=== PATIENT | male | born 1970 | race Caucasian/White ===

== ENCOUNTER 2022-03-02 15:15 | Outpatient (RCR) | payer OTHER, SELFPAY | END 2022-06-02 08:35 | disposition home or self-care (01) | PROVIDERS: PCP Family Medicine; Visit Provider Physician Assistant | DX: M54.2 Cervicalgia (principal); Z51.89 Encounter for other specified aftercare | CPT/HCPCS: 97012; 97110; 97140; 97161; 97162 ==

== ENCOUNTER 2022-05-30 08:19 | Emergency (ER) | payer OTHER, SELFPAY ==
[2022-05-30] VITALS (22 sets, daily range): BP systolic 151–173; BP diastolic 83–96; PULSE 49–65; TEMP 35.8; O2SAT 96–100; BMI 36.5
[2022-05-30 09:22] LABS: Basophils Absolute Auto 0.03 K/uL (0.00-0.30); Basophils Percent Auto 0.4 % (0.0-3.0); Eosinophils Absolute Auto 0.28 K/uL (0.00-0.50); Eosinophils Percent Auto 3.6 % (0.0-7.0); Hemoglobin* 14.3 gm/dL (13.5-17.5); Lymphocytes Absolute Auto 2.28 K/uL (0.90-2.90); Lymphocytes Percent Auto 28.9 % (20-44); Mean Corpuscular HGB Conc 35 gm/dL (32-36); Mean Corpuscular Hemoglobin 30 pg (26-34); Mean Corpuscular Volume 85 fL (80-100); Monocytes Percent Auto 6.7 % (0.0-11.0); Neutrophils Absolute Auto 4.76 K/uL (1.7-7.0); Neutrophils Percent Auto 60.4 % (42.0-72.0); Platelet Count* 279 K/uL (140-440); RDW Coefficient of Variation % 12.9 % (11.5-15.5); Red Blood Count 4.85 m/uL (4.30-5.90); White Blood Count* 7.88 K/uL (4.50-11.00)
[2022-05-30 09:25] LABS: Slide Review Reflex No
[2022-05-30 09:29] LABS: Lactate* 0.9 mmol/L (0.5-1.9)
[2022-05-30 09:37] LABS: Appearance Urine Clear (Clear); Bilirubin Urine 1+ (Negative); Blood Urine Negative (Negative); Color Urine Yellow (Yellow); Glucose Urine Negative (Negative); Ketones Urine Trace (Negative); Leukocyte Esterase Urine Negative (Negative); Nitrite Urine Negative (Negative); Protein Urine 2+ (Negative); Specific Gravity Urine 1.025 (1.000-1.030); Urobilinogen Urine 0.2 (0.2-1.0); pH Urine 6.5 (5.0-8.5)
[2022-05-30 09:39] LABS: Chloride* 105 mmol/L (96-114); Potassium* 3.2 mmol/L (3.6-5.1); Sodium* 140 mmol/L (135-149)
[2022-05-30 09:41] LABS: Lipase* 60 U/L (23-300)
[2022-05-30 09:42] LABS: Blood Urea Nitrogen* 9 mg/dL (7-30); Carbon Dioxide* 26 mmol/L (20-32); Creatinine* 0.6 mg/dL (0.5-1.5); Est. Creatinine Clearance* 139.33; Estimated Glomerular Filt Rate 116 ml/min; Glucose* 104 mg/dL (60-115)
[2022-05-30 09:43] LABS: Alanine Aminotransferase* 29 U/L (4-50); Alkaline Phosphatase* 109 U/L (40-150); Aspartate Amino Transferase* 30 U/L (12-35); Bilirubin Direct* 0.3 mg/dL (0.0-0.5); Bilirubin Total* 0.6 mg/dL (0.1-1.5); Calcium* 9.4 mg/dL (8.4-10.6); Total Protein* 7.1 g/dL (6.0-8.3)
[2022-05-30 09:46] LABS: C Reactive Protein* 0.7 mg/dL (0.5-1.0)
[2022-05-30 09:53] LABS: RBC Urine 0-2 (0-2)
[2022-05-30 09:55] LABS: Mucus Urine Moderate
--- NOTE | 2022-05-30 10:04 | CRLHL7_ITS ---
For Patients: As a result of the Century Cures Act, medical imaging exams and procedure reports are released immediately into your electronic medical record. You may view this report before your referring provider. If you have questions, please contact your health care provider. indication: Right abdominal pain and flank pain Technique: Volumetric multidetector CT images of the abdomen and pelvis were obtained after the administration of intravenous contrast. 118 cc Isovue 370 low osmolar intravenous contrast Comparison: None available. Findings: The lung bases are clear. The liver is enlarged with moderate hepatic steatosis and hepatomegaly. The portal vein is patent. The gallbladder is unremarkable without evidence of radiopaque calculus. There is no significant common biliary ductal dilatation or abrupt cut off. The spleen is normal in enhancement and size. There is mild thickening of the gastric antrum with minimal gastric mucosal hyperemia. The pancreas is normal in enhancement without significant atrophy. The adrenal glands are unremarkable. The kidneys demonstrate cystic change of the left kidney with otherwise preserved corticomedullary differentiation. There is no evidence of distal obstructive calculus. There is a [id number] amount of stool seen throughout the colon with minimal distal colonic diverticulosis without evidence of diverticulitis. The appendix is unremarkable. There is no significant mesenteric, retroperitoneal, or pelvic sidewall lymph nodes. The aorta is nonaneurysmal. There is no significant atherosclerotic disease appreciated. The solid pelvic viscera are grossly unremarkable. There is no free fluid or free air. The anterior abdominal wall is intact without significant hernias. The lumbar vertebral body heights are grossly maintained with mild straightening of the normal lumbar lordosis. There is no significant spondylolisthesis or displaced fracture. There is mild to moderate degenerative disc disease with calcified disc osteophyte complexes at the L3-L4 through L5-S1 levels. Impression: Mild to moderate stool seen throughout the colon with minimal distal colonic diverticulosis without evidence of diverticulitis. Normal appendix. No evidence of right-sided hydronephrosis or hydroureter. Hepatomegaly and hepatic steatosis. [id number] chronic gastritis changes. Please note that all CT scans at this facility use dose modulation, iterative reconstruction, and/or weight-based dosing when appropriate to reduce radiation dose to as low as reasonably achievable. Dictated by Remigio Escalona MD @ 05/30/2022 10:57:09 AM (Electronically Signed)
--- NOTE | 2022-05-30 12:36 | ED_ITS ---
HPI - General Adult General Date Seen: 05/30/22 Chief complaint: Abdominal Pain Stated complaint: Abdominal pain/diarrhea Time Seen by Provider: 05/30/22 08:21 Source: patient Mode of arrival: ambulatory Limitations: no limitations History of Present Illness HPI narrative: Patient is a 51-year-old male who presents for evaluation of some right-sided back pain which has been present for about 3 weeks. He says he saw his primary clinic about a week ago for evaluation, and had an ultrasound at that time, he says he was told that symptoms may be related to his gallbladder any has an appointment set up with General surgery on the . He was told to come to the emergency department if he got any worse. He says that he continues to have pain in the right back, it radiates across to the left back. He has a little bit of mild epigastric discomfort at times, and has been having some nausea after he eats, no vomiting. The back pain does not get any worse with eating, it does get worse with movement any occasionally gets a sharp pain that lasts a couple of seconds. The back pain is otherwise been constant, does wax and wane with intensity. Never gone away however. He has not had any fevers. He has not had any vomiting. Has had some nonbloody diarrhea over the past few days. He has not had any other abdominal pain, specifically has not had any right upper quadrant pain. He has not had any breathing difficulties or chest pain. No urinary symptoms. He said he was told there was some inflammation on the gallbladder ultrasound as well as polyps. He was told to follow-up with surgery. Related Data Home Medications Medication Instructions Recorded Confirmed carvedilol 25 mg tablet mg 05/30/22 ezetimibe 10 mg-simvastatin 10 mg tab 05/30/22 tablet gabapentin 300 mg capsule mg 05/30/22 omeprazole 20 mg capsule,delayed mg 05/30/22 release rizatriptan 10 mg tablet mg 05/30/22 sacubitril 97 mg-valsartan 103 mg tab 05/30/22 tablet (Entresto) sertraline 100 mg tablet mg 05/30/22 spironolactone 25 mg tablet mg 05/30/22 tizanidine 2 mg tablet mg 05/30/22 tizanidine 4 mg tablet mg 05/30/22 zolpidem 10 mg tablet mg 05/30/22 Allergies Allergy/AdvReac Type Severity Reaction Status Date / Time Penicillins Allergy Unknown Verified 05/30/22 10:29 Review of Systems Status of ROS: Reports: 10 or more systems reviewed and unremarkable except as noted in History and below [facility] Social History Smoking Status: Never smoker How often do you have a drink containing alcohol: monthly or less How often do you have six or more drinks on one occasion: Never AUDIT-C Alcohol total score: 1 Non-prescribed substance use: denies use Exam Narrative: Exam Narrative: Vital signs as noted above. In general, an alert, well-appearing patient. He looks comfortable. Head: Normocephalic, atraumatic. Eyes: Pupils are equal reactive. Extraocular movements are full. Conjunctivae are normal. No scleral icterus. ENT: Mucous membranes are moist. Throat is normal. Neck: Supple without lymphadenopathy. Heart: Regular rate and rhythm. No murmur or rub. Lungs: Clear bilaterally. No increased work of breathing, crackles or wheezes. He does have tenderness to palpation in the right back, including some CVA tenderness. Abdomen: Protuberant and soft, notably absent right upper quadrant tenderness. Really does not seem to have any significant abdominal tenderness at all. Extremities: Well perfused. No edema. No calf tenderness. Pulses intact. Neurologic: Patient is alert and oriented to person and place. Speech is fluent. Face is symmetric. Moves all extremities equally. Affect: Normal. Skin: Warm and dry. Well perfused. Const: Vital Signs, click to edit/add: Vital Signs - 24 hr 05/30/22 08:28 05/30/22 08:29 05/30/22 08:30 Temperature 96.5 F L Pulse Rate 58 L 54 L Pulse Rate [Right Pulse Oximeter] 53 L Blood Pressure Blood Pressure [Ri ght Upper Arm] 165/95 H Pulse Oximetry 99 98 100 Oxygen Delivery Me thod Room Air 05/30/22 08:32 05/30/22 08:33 05/30/22 08:45 Temperature Pulse Rate 54 L 53 L 53 L Pulse Rate [Right Pulse Oximeter] Blood Pressure 164/87 H Blood Pressure [Ri ght Upper Arm] Pulse Oximetry 98 98 99 Oxygen Delivery Me thod 05/30/22 09:00 01/16/23 09:02 05/30/22 09:03 Temperature Pulse Rate 52 L 55 L 52 L Pulse Rate [Right Pulse Oximeter] Blood Pressure 155/83 H Blood Pressure [Ri ght Upper Arm] Pulse Oximetry 98 96 98 Oxygen Delivery Ca thod 05/30/22 09:19 05/30/22 09:30 05/30/22 09:32 Temperature Pulse Rate 53 L 49 L 51 L Pulse Rate [Right Pulse Oximeter] Blood Pressure 167/96 H Blood Pressure [Ri ght Upper Arm] Pulse Oximetry 97 98 98 Oxygen Delivery Ca thod 05/30/22 09:45 05/30/22 10:00 05/30/22 10:02 Temperature Pulse Rate 49 L 52 L 53 L Pulse Rate [Right Pulse Oximeter] Blood Pressure 173/92 H Blood Pressure [Ri ght Upper Arm] Pulse Oximetry 98 99 99 Oxygen Delivery Ca thod 05/30/22 10:03 05/30/22 10:15 05/30/22 10:32 Temperature Pulse Rate 53 L 51 L 65 Pulse Rate [Right Pulse Oximeter] Blood Pressure Blood Pressure [Ri ght Upper Arm] Pulse Oximetry 99 99 [facility] 10:41 05/30/22 10:45 05/30/22 11:02 Temperature Pulse Rate 51 L 51 L 53 L Pulse Rate [Right Pulse Oximeter] Blood Pressure 156/84 H 151/85 H Blood Pressure [Ri ght Upper Arm] Pulse Oximetry 99 99 99 [facility] 05/30/22 11:32 Temperature Pulse Rate 54 L Pulse Rate [Right Pulse Oximeter] Blood Pressure 153/88 H Blood Pressure [Ri ght Upper Arm] Pulse Oximetry 98 Oxygen Delivery Me thod Documenting provider has reviewed patient's vital signs: yes Course Course Hospital Course: Patient declined the need for anything for pain here. At home, he says he has taken ibuprofen a couple of times in Tylenol couple of times but really has not taken much since nothing seem to make much difference. He does have a history of gastroesophageal reflux and takes omeprazole 20 mg daily, he has taken that for quite some time. I had a fairly lengthy conversation with the patient and his both at the beginning and the end of his evaluation, discussing that his presentation is little unusual for gallbladder disease. I was able to obtai n the ultrasound report, which noted gallbladder polyps, but normal wall thickness, normal common bile duct. He does not have any right upper quadrant pain, does not have any abdominal tenderness, and with constant pain for 3 weeks, I told him I think it is relatively unlikely that his symptoms are related to the gallbladder polyps. Nonetheless, we did repeat some labs, his CBC shows a normal white blood cell count of 7.88 with a normal diff. His metabolic panel shows a mildly low potassium of 3.2 but otherwise electrolytes are normal, BUN and creatinine are normal, LFTs are entirely within normal limits and lipase is 60. A urinalysis showed 2+ protein bilirubin was 1+ but his serum bilirubin is normal. He had 0-2 red cells, 2-5 white cells. No bacteria. I went on to do a CT scan of the abdomen both to re-evaluate the gallbladder and to evaluate whether there might be some other reason for him to be having right flank pain for the past several weeks. Radiology reads this as essentially negative. He has a patent steatosis, and does have evidence of mild to moderate gastritis. I have discussed with him at this time I remain skeptical that symptoms are due to his gallbladder. I would recommend that he follow-up with Dr. Liu as planned to discuss his polyps, in the event that she feels that he is simply presenting in a typical manner. For today, I do not find any evidence of cholecystitis or need for more emergent management. He does have evidence of gastritis, I think it is certainly possible that his nausea and epigastric pain could represent worsening gastritis or peptic ulcer disease. I recommended that we increase his omeprazole. If Dr. Gaines does not feel that his gallbladder is the culprit here, I think follow-up with Gastroenterology might be reasonable to see if endoscopy could be helpful. With regard to his back pain, I suspect this is likely musculoskeletal, and I a suggested that a few days of targeted NSAID plus Tylenol 3 times daily might be beneficial for him. 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 For the time being, I think it is reasonable to let him go home. Certainly if he has worsening or severe pain, develops severe abdominal pain, vomiting, fevers or other new symptoms, he should return for re-evaluation. He is comfortable with that plan. Vital Signs Vital signs: Initial Vital Signs Temperature 96.5 F L 05/30/22 08:28 Temperature Source Temporal Artery Scan 05/30/22 08:28 Pulse Rate 53 L 05/30/22 08:28 Blood Pressure 165/95 H 05/30/22 08:28 Blood Pressure Mean 118 05/30/22 08:28 Blood Pressure Position Sitting 05/30/22 08:28 Pulse Oximetry 99 05/30/22 08:28 Oxygen Delivery Method 05/30/22 08:28 Vital Signs Temperature 96.5 F L 05/30/22 08:28 Pulse Rate 53 L 05/30/22 08:28 Blood Pressure 165/95 H 05/30/22 08:28 Pulse Oximetry 99 05/30/22 08:28 Oxygen Delivery Method 05/30/22 08:28 Temperature 96.5 F L 05/30/22 08:28 Pulse Rate 54 L 05/30/22 11:32 Blood Pressure 153/88 H 05/30/22 11:32 Pulse Oximetry 98 05/30/22 11:32 Oxygen Delivery Method 05/30/22 08:28 Medical Decision Making Lab Data Labs: Lab Results 05/30/22 05/30/22 05/30/22 Range/Units 09:16 09:16 09:16 WBC 7.88 (4.50-11.00) K/uL RBC 4.85 (4.30-5.90) m/uL Hgb 14.3 (13.5-17.5) gm/dL Hct 41.0 (37.0-53.0) % MCV 85 (80-100) fL MCH 30 (26-34) pg MCHC 35 (32-36) gm/dL RDW Coeff of Teddy 12.9 (11.5-15.5) % Plt Count 279 (140-440) K/uL Neut % (Auto) 60.4 (42.0-72.0) % Lymph % (Auto) 28.9 (20-44) % [place] % (Auto) 6.7 (0.0-11.0) % Eos % (Auto) 3.6 (0.0-7.0) % Baso % (Auto) 0.4 (0.0-3.0) % Neut # (Auto) 4.76 (1.7-7.0) K/uL Lymph # (Auto) 2.28 (0.90-2.90) K/uL [place] # (Auto) 0.50 (0.00-0.90) K/UL Eos # (Auto) 0.28 (0.00-0.50) K/uL Baso # (Auto) 0.03 (0.00-0.30) K/uL Sodium 140 (135-149) mmol/L Potassium 3.2 L (3.6-5.1) mmol/L Chloride 105 (96-114) mmol/L Carbon Dioxide 26 (20-32) mmol/L BUN 9 (7-30) mg/dL Creatinine 0.6 (0.5-1.5) mg/dL Estimated Creat Clear 139.33 Estimated GFR 116 ml/min Glucose 104 (60-115) mg/dL Lactate (0.5-1.9) mmol/L Calcium 9.4 (8.4-10.6) mg/dL Total Bilirubin 0.6 (0.1-1.5) mg/dL Direct Bilirubin 0.3 (0.0-0.5) mg/dL AST 30 (12-35) U/L ALT 29 (4-50) U/L Alkaline Phosphatase 109 (40-150) U/L C-Reactive Protein 0.7 (0.5-1.0) mg/dL Total Protein 7.1 (6.0-8.3) g/dL Albumin 4.0 (3.3-5.0) g/dL Lipase (23-300) U/L Urine Color (Yellow) Urine Appearance (Clear) Urine pH (5.0-8.5) Ur Specific [place] (1.000-1.030) Urine Protein (Negative) Urine Glucose (UA) (Negative) Urine Ketones (Negative) Urine Blood (Negative) Urine Nitrite (Negative) Urine Bilirubin (Negative) Urine Urobilinogen (0.2-1.0) Ur Leukocyte Esterase (Negative) Urine RBC (0-2) Urine WBC (0-5) Ur Squamous Epith Cells (None-Few) Urine Bacteria (None) Urine Mucus (None) 05/30/22 05/30/22 05/30/22 Range/Units 09:16 09:16 09:17 WBC (4.50-11.00) K/uL RBC (4.30-5.90) m/uL Hgb (13.5-17.5) gm/dL Hct (37.0-53.0) % MCV (80-100) fL MCH (26-34) pg MCHC (32-36) gm/dL RDW Coeff of Teddy (11.5-15.5) % Plt Count (140-440) K/uL Neut % (Auto) (42.0-72.0) % Lymph % (Auto) (20-44) % [place] % (Auto) (0.0-11.0) % Eos % (Auto) (0.0-7.0) % Baso % (Auto) (0.0-3.0) % Neut # (Auto) (1.7-7.0) K/uL Lymph # (Auto) (0.90-2.90) K/uL [place] # (Auto) (0.00-0.90) K/UL Eos # (Auto) (0.00-0.50) K/uL Baso # (Auto) (0.00-0.30) K/uL Sodium (135-149) mmol/L Potassium (3.6-5.1) mmol/L Chloride (96-114) mmol/L Carbon Dioxide (20-32) mmol/L BUN (7-30) mg/dL Creatinine (0.5-1.5) mg/dL Estimated Creat Clear Estimated GFR ml/min Glucose (60-115) mg/dL Lactate 0.9 (0.5-1.9) mmol/L Calcium (8.4-10.6) mg/dL Total Bilirubin (0.1-1.5) mg/dL Direct Bilirubin (0.0-0.5) mg/dL AST (12-35) U/L ALT (4-50) U/L Alkaline Phosphatase (40-150) U/L C-Reactive Protein (0.5-1.0) mg/dL Total Protein (6.0-8.3) g/dL Albumin (3.3-5.0) g/dL Lipase 60 (23-300) U/L Urine Color Yellow (Yellow) Urine Appearance Clear (Clear) Urine pH 6.5 (5.0-8.5) Ur Specific [place] 1.025 (1.000-1.030) Urine Protein 2+ A (Negative) Urine Glucose (UA) Negative (Negative) Urine Ketones Trace A (Negative) Urine Blood Negative (Negative) Urine Nitrite Negative (Negative) Urine Bilirubin 1+ A (Negative) Urine Urobilinogen 0.2 (0.2-1.0) Ur Leukocyte Esterase Negative (Negative) Urine RBC 0-2 (0-2) Urine WBC 2-5 (0-5) Ur Squamous Epith Cells None (None-Few) Urine Bacteria None (None) Urine Mucus Moderate A (None) Discharge Plan Discharge Clinical Impression: Gallbladder polyp, Back pain Patient Disposition: Home, Self-Care Condition: Stable Additional Instructions: Ibuprofen 400 mg plus Tylenol 1000 mg 3 times daily with food. Increase omeprazole to 40 mg daily. Follow-up with Dr. Liu in clinic next week as planned. If at any time you have severe uncontrolled pain, new symptoms such as fever, vomiting, severe abdominal pain or other worsening, return to the emerge ncy department for re-evaluation. Zofran if needed for nausea. Prescriptions: No Action carvedilol 25 mg tablet tizanidine 2 mg tablet Label Comments: TAKE 1-2 TABLETS (2-4 MG) BY MOUTH AT BEDTIME. tizanidine 4 mg tablet Label Comments: TAKE 1 TABLET BY MOUTH EVERY 8 HOURS IF NEEDED FOR MUSCLE SPASM. rizatriptan 10 mg tablet sertraline 100 mg tablet spironolactone 25 mg tablet gabapentin 300 mg capsule Label Comments: TAKE 1 CAPSULE (300 MG) BY MOUTH THREE TIMES A DAY. omeprazole 20 mg capsule,delayed release(DR/EC) zolpidem 10 mg tablet ezetimibe-simvastatin 10-10 mg tablet Entresto 97-103 mg tablet Follow Up/Referrals: Jyoti Felton DO [Primary Care Provider] - Stand Alone Forms: [employer] Info Instructions
== END 2022-05-30 11:44 | disposition home or self-care (01) ==
PROVIDERS: Emergency Provider Emergency Medicine; PCP Family Medicine
DX: K82.4 Cholesterolosis of gallbladder (principal); M54.9 Dorsalgia, unspecified
CPT/HCPCS: 36415; 74177; 80048; 80076; 81001; 83605; 83690; 85025; 86140; 99284; Q9967

== ENCOUNTER 2022-06-06 08:13 | Day surgery (SDC) | payer OTHER, SELFPAY ==
[2022-06-06] VITALS (13 sets, daily range): BP systolic 132–159; BP diastolic 81–95; PULSE 57–83; RESP 16–20; TEMP 36.2–36.6; O2SAT 94–97; BMI 37.4
[2022-06-06] MEDS: SODIUM CHLORIDE 0.9 % (FLUSH) 10 ML SYRINGE IVF (08:45)
[2022-06-06] MEDS: LACTATED RINGERS 1000 ML 1,000 ML 100 ML IV ×2 (08:45→10:11)
--- NOTE | 2022-06-06 08:57 | SUR.PREOP ---
Patient provided home covid negative results to RN.
[2022-06-06] MEDS: SCOPOLAMINE 1 MG/3 DAY PATCH 1 PATCH TRANSDERMA (09:11)
[2022-06-06] MEDS: CLINDAMYCIN 900 MG/50 ML-D5W IVPB (09:37)
[2022-06-06] MEDS: BUPIVACAINE 0.25% 30 ML INJECTION (10:50)
--- NOTE | 2022-06-06 11:08 | P.GSOP_ITS ---
Operative Note Date of procedure: 06/06/22 Pre-op diagnosis: 1. Gallbladder polyps with biliary colic Post-op diagnosis: 1. Cholelithiasis Type of Procedure: Laparoscopic cholecystectomy Indications: The patient is a 51-year-old male who developed right upper quadrant discomfort with eating as well as nausea. Workup revealed gallbladder polyps. CT scan was unrevealing. He was seen in surgery clinic and found to have symptoms that seemed most consistent with biliary colic. We discussed that sometimes small stones can adhere to the wall of the gallbladder and look like polyps. Regardless, it is recommended as well that patients with symptomatic polyps, even though they are almost always benign, undergo cholecystectomy. After discussion of options he agreed to proceed. Procedure Description: After discussing the risks and benefits of the procedure, the patient signed informed consent.? The operative site was marked and the patient was brought to the operating room and placed on the operating table in supine position.? Care was taken to pad the patient's pressure points.?? The patient was then intubated by anesthesia.?? The operative site was then prepped and draped in the usual sterile fashion.? A time-out was then performed. Entrance to the abdomen was gained via a 5 mm Visiport in the left upper quadrant. The abdomen was insufflated and briefly surveyed for signs of injury. There was none. A 10 mm umbilical port was placed as well as 2 working ports along the right costal margin, all under direct vision. The patient was then placed in reverse Trendelenburg position with the right side up. The gallbladder fundus was grasped and retracted cephalad. A small amount of dissection was ne eded to free omental adhesions from the gallbladder. The infundibulum was grasped. A combination of hook cautery and blunt dissection was used to carefully dissect out the cystic duct and artery until they could clearly be seen entering the gallbladder without any intervening structures. The gallbladder was dissected off the cystic plate to achieve the critical view. Once this was achieved the cystic duct and artery were each clipped with 2 clips proximally and 1 clip distally and transected with the scissors. The gallbladder was then taken off of the liver bed. The gallbladder was entered and a small amount of bile and a few small stones spilled out. These were removed from the abdomen. A small vessel on the lateral peritoneal reflection of the gallbladder which was bleeding was clipped. The gallbladder was then removed from the abdomen using an Endo-Catch bag. The gallbladder bed was surveyed for hemostasis which appeared adequate. A small amount of bile which had spilled was suctioned from the abdomen. The umbilical port fascia was closed with 0 Vicryl using a Matthew-Alan device. The abdomen was desufflated and the remaining ports removed. The skin was closed with absorbable subcuticular suture. Sterile dressings were applied. Instrument sponge and needle counts were correct at the end of the case. The patient was then woken and transferred to the PACU in stable condition. ? The patient tolerated the procedure well. Findings: Cholelithiasis Anesthesia: WILNER Surgeon: Bianka iLu MD Estimated blood loss (mL): 5 Specimen: Gallbladder Condition: stable Disposition: PACU
--- NOTE | 2022-06-06 11:08 | W.ANESCHARGE ---
Anesthesia Charges Start Date/Time Anesthesia Start Date: 06/06/22 Anesthesia Start Time: 09:27 Stop Date/Time Anesthesia Stop Date: 06/06/22 Anesthesia Stop Time: 11:06 Summary Emergency: No
--- NOTE | 2022-06-06 11:14 | W.ANESCHARGE ---
Anesthesia Charges Start Date/Time Anesthesia Start Date: 06/06/22 Anesthesia Start Time: 09:27 Stop Date/Time Anesthesia Stop Date: 06/06/22 Anesthesia Stop Time: 11:06 Summary Emergency: No
[2022-06-06] MEDS: HYDROCODONE-ACETAMIN 5-325 MG 1 TAB PO (12:01)
== END 2022-06-06 12:40 | disposition home or self-care (01) ==
PROVIDERS: PCP Family Medicine; Visit Provider Surgery
PROC: 0FT44ZZ Resection of Gallbladder, Percutaneous Endoscopic Approach (ICD-10-PCS; CPT 47562; principal; 2022-06-06 09:30)
DX: K80.20 Calculus of gallbladder without cholecystitis without obstruction (principal)
CPT/HCPCS: 47562; 00790; 88304; A9270; J0330; J1100; J2250; J2405; J2704; J2710; J3010; J3490; J7120; S0077

== ENCOUNTER 2023-02-25 17:47 | Emergency (ER) | payer OTHER, SELFPAY ==
[2023-02-25 17:51] VITALS: BP 151/88; PULSE 59; RESP 18; TEMP 36.1; O2SAT 96; BMI 36.5
--- NOTE | 2023-02-25 19:25 | ED.NURSE ---
Patient moved to [facility] bed 2 for MD assessment.
[2023-02-25] MEDS: lidocaine HCL 2 % MULTIDOSE 20 ML VIAL INJECTION (19:31)
--- NOTE | 2023-02-25 19:55 | ED.GENADULT ---
HPI - General Adult General Chief complaint: Laceration/Wound Stated complaint: R thumb laceration with mandolin Time Seen by Provider: 02/25/23 19:21 Source: patient Mode of arrival: ambulatory Limitations: no limitations History of Present Illness HPI narrative: 52-year-old male presenting today after suffering a laceration of the right thumb with a mandoline. No other concerns today. Tdap last updated in 2012. Related Data Home Medications Medication Instructions Recorded Confirmed carvedilol 25 mg tablet 25 mg PO Q12H 05/30/22 06/06/22 ezetimibe 10 mg-simvastatin 10 mg 1 tab PO HS 05/30/22 06/06/22 tablet gabapentin 300 mg capsule mg 05/30/22 omeprazole 20 mg capsule,delayed 40 mg PO DAILY 05/30/22 06/06/22 release rizatriptan 10 mg tablet 10 mg PO 05/30/22 sacubitril 97 mg-valsartan 103 mg 1 tab PO BID 05/30/22 06/06/22 tablet (Entresto) sertraline 100 mg tablet 100 mg PO DAILY 05/30/22 06/06/22 spironolactone 25 mg tablet 25 mg PO DAILY 05/30/22 06/06/22 tizanidine 2 mg tablet mg 05/30/22 tizanidine 4 mg tablet mg 05/30/22 zolpidem 10 mg tablet 10 mg PO HS PRN 05/30/22 06/06/22 fluticasone propionate 50 1 spray intranasal DAILY PRN 06/03/22 06/06/22 mcg/actuation nasal spray,suspension (Allergy Relief (fluticasone)) ondansetron 4 mg disintegrating 4 mg PO DAILY 06/03/22 06/06/22 tablet Allergies Allergy/AdvReac Type Severity Reaction Status Date / Time Penicillins Allergy Unknown Increased Verified 10/23/22 14:09 heart rate Review of Systems Status of ROS: Reports: 6 or more systems reviewed and unremarkable except as noted in History and below [facility] Medical History History of esophageal dilatation ?Z98.890 - Other specified postprocedural states (ICD-10) SVT (supraventricular tachycardia) ?I47.1 - Supraventricular tachycardia (ICD-10) Sleep apnea ?G47.30 - Sleep apnea, unspecified (ICD-10) Migraine with aura ?G43.109 - Migraine with aura, not intractable, without status migrainosus (ICD-10) HTN (hypertension) ?I10 - Essential (primary) hypertension (ICD-10) Depression ?F32.A - Depression, unspecified (ICD-10) Fatigue ?R53.83 - Other fatigue (ICD-10) Adenomatous colon polyp ?D12.6 - Benign neoplasm of colon, unspecified (ICD-10) GERD (gastroesophageal reflux disease) ?K21.9 - Gastro-esophageal reflux disease without esophagitis (ICD-10) Surgical History Hx of tonsillectomy ?Z90.89 - Acquired absence of other organs (ICD-10) Hx of arthroscopy of left knee ?Z98.890 - Other specified postprocedural states (ICD-10) Hx of cystoscopy ?Z98.890 - Other specified postprocedural states (ICD-10) Hx of colonoscopy ?Z98.890 - Other specified postprocedural states (ICD-10) Social History Smoking Status: Never smoker How many standard drinks containing alcohol do you have on a typical day: 1 or 2 How often do you have six or more drinks on one occasion: Never AUDIT-C Alcohol total score: 0 Non-prescribed substance use: denies use Caffeine: Yes Exam Narrative: Exam Narrative: Obese, well-developed patient in no acute distress. Alert and oriented. Answers questions appropriately. Mood and affect are appropriate. Thoughts are goal oriented and rational. No tangential or magical thinking noted. Patient speaks in full sentences without needing to catch their breath. HEENT: Normocephalic atraumatic. Pupils are equally round reactive to light. Extraocular muscles are intact. Conjunctivae are moist without any icterus noted. Moist mucous membranes. Hand: Patient has a laceration of the lateral pad of the thumb. He has sliced off a flap that is hanging on by 1 side out of 4, cuts through the dermis into the subcutaneous tissue does not penetrate through the subcutaneous tissue. No bone visible. Const: Vital Signs, click to edit/add: Vital Signs - 24 hr 02/25/23 17:51 Temperature 97 F L Pulse Rate [Pulse Oximeter] 59 L Respiratory Rate 18 Blood Pressure [Le ft Upper Arm] 151/88 H Pulse Oximetry 96 Oxygen Delivery Me thod Room Air Course Course ED Course: Digital block was performed in the wound was explored and irrigated. A tourniquet was placed and the flap was sutured down with 4-0 Ethilon. Tourniquet removed and laceration was bandaged. Tdap updated today. Vital Signs Vital signs: Initial Vital Signs Temperature 97 F L 02/25/23 17:51 Temperature Source Temporal Artery Scan 02/25/23 17:51 Pulse Rate 59 L 02/25/23 17:51 Respiratory Rate 18 02/25/23 17:51 Blood Pressure 151/88 H 02/25/23 17:51 Blood Pressure Mean 109 H 02/25/23 17:51 Blood Pressure Position Supine 02/25/23 17:51 Pulse Oximetry 96 02/25/23 17:51 Oxygen Delivery Method Room Air 02/25/23 17:51 Vital Signs Temperature 97 F L 02/25/23 17:51 Pulse Rate 59 L 02/25/23 17:51 Respiratory Rate 18 02/25/23 17:51 Blood Pressure 151/88 H 02/25/23 17:51 Pulse Oximetry 96 02/25/23 17:51 Oxygen Delivery Method Room Air 02/25/23 17:51 Temperature 97 F L 02/25/23 17:51 Pulse Rate 59 L 02/25/23 17:51 Respiratory Rate 18 02/25/23 17:51 Blood Pressure 151/88 H 02/25/23 17:51 Pulse Oximetry 96 02/25/23 17:51 Oxygen Delivery Method Room Air 02/25/23 17:51 Medical Decision Making MDM Narrative Medical decision making narrative: 52-year-old male status post laceration to the thumb treated per above. We discussed wound hygiene, signs symptoms of infection reasons to return for follow-up. We discussed suture removal in approximately 1 week. We discussed the possibility of the flap of skin not surviving. Patient was in agreement with everything we discussed had no other questions. Discharge Plan Discharge Clinical Impression: Laceration Patient Disposition: Home, Self-Care Condition: Improved Additional Instructions: Keep hand clean and dry. Wash with warm soapy water once a day. Okay to shower like normally but do not soak the hand such as doing dishes or going swimming. Suture should be removed in approximately 1 week with your primary care provider. Watch for signs of infection which include redness of the thumb or purulent drainage from the laceration. If this occurs follow-up in the ER right away or see your doctor right away in the clinic. Prescriptions: No Action fluticasone propionate [Allergy Relief (fluticasone)] 50 mcg/actuation spray,suspension 1 spray intranasal DAILY PRN Rx Instructions: administer into each nostril ondansetron 4 mg tablet,disintegrating 4 mg PO DAILY carvedilol 25 mg tablet 25 mg PO Q12H tizanidine 2 mg tablet Patient Comments: TAKE 1-2 TABLETS (2-4 MG) BY MOUTH AT BEDTIME. tizanidine 4 mg tablet Patient Comments: TAKE 1 TABLET BY MOUTH EVERY 8 HOURS IF NEEDED FOR MUSCLE SPASM. rizatriptan 10 mg tablet 10 mg PO sertraline 100 mg tablet 100 mg PO DAILY spironolactone 25 mg tablet 25 mg PO DAILY gabapentin 300 mg capsule Patient Comments: TAKE 1 CAPSULE (300 MG) BY MOUTH THREE TIMES A DAY. omeprazole 20 mg capsule,delayed release(DR/EC) 40 mg PO DAILY zolpidem 10 mg tablet 10 mg PO HS PRN ezetimibe-simvastatin 10-10 mg tablet 1 tab PO HS Entresto 97-103 mg tablet 1 tab PO BID Follow Up/Referrals: Jyoti Felton DO [Primary Care Provider] - Stand Alone Forms: [facility] Info Instructions
[2023-02-25] MEDS: TETANUS/DIPHTH/PERTUSSIS 0.5 ML SYRINGE IM (20:13)
== END 2023-02-25 20:15 | disposition home or self-care (01) ==
LOC: ED 20:08
PROVIDERS: Emergency Provider Family Medicine; PCP Family Medicine
DX: S61.011A Laceration without foreign body of right thumb without damage to nail, initial encounter (principal); W27.8XXA Contact with other nonpowered hand tool, initial encounter
CPT/HCPCS: 12001; 90471; 90715; 99283; 99284

== ENCOUNTER 2023-06-23 13:26 | Emergency (ER) | payer OTHER, SELFPAY ==
[2023-06-23] VITALS (10 sets, daily range): BP systolic 154–172; BP diastolic 86–100; PULSE 50–64; RESP 18; TEMP 36; O2SAT 95–99; BMI 40.3
--- NOTE | 2023-06-23 13:50 | ED.GENADULT ---
HPI - General Adult General Chief complaint: Chest Pain Stated complaint: SVT and heart failure in past-headache, chest pain Time Seen by Provider: 06/23/23 13:38 Source: patient Mode of arrival: ambulatory Limitations: no limitations History of Present Illness HPI narrative: 52-year-old male with a history of obesity, hypertension, SVT, depression, GERD , known left bundle-branch block and obstructive sleep apnea, presents today with an episode of chest pain. Patient works overnight and he came home early in the morning fell asleep around 9:00 a.m. woke up around noon. Upon wakening he had a sharp pain at the base of the chest top of the abdomen, right in the center, that lasted about 5 minutes. Pain was very sharp and uncomfortable. He felt pressure also in his head and behind his eyes. Patient was concerned given his history of SVT presented to the ED. He is currently asymptomatic from a chest pain standpoint, does continue to have pressure behind his eyes. While he was having the episode of pain, he denied being diaphoretic, dizzy or short of breath. He does state that he felt a little lightheaded. This has resolved. Related Data Home Medications Medication Instructions Recorded Confirmed carvedilol 25 mg tablet 25 mg PO Q12H 05/30/22 06/06/22 ezetimibe 10 mg-simvastatin 10 mg 1 tab PO HS 05/30/22 06/06/22 tablet gabapentin 300 mg capsule mg 05/30/22 omeprazole 20 mg capsule,delayed 40 mg PO DAILY 05/30/22 06/06/22 release rizatriptan 10 mg tablet 10 mg PO 05/30/22 sacubitril 97 mg-valsartan 103 mg 1 tab PO BID 05/30/22 06/06/22 tablet (Entresto) sertraline 100 mg tablet 100 mg PO DAILY 05/30/22 06/06/22 spironolactone 25 mg tablet 25 mg PO DAILY 05/30/22 06/06/22 tizanidine 2 mg tablet mg 05/30/22 tizanidine 4 mg tablet mg 05/30/22 zolpidem 10 mg tablet 10 mg PO HS PRN 05/30/22 06/06/22 fluticasone propionate 50 1 spray intranasal DAILY PRN 06/03/22 06/06/22 mcg/actuation nasal spray,suspension (Allergy Relief (fluticasone)) ondansetron 4 mg disintegrating 4 mg PO DAILY 06/03/22 06/06/22 tablet Allergies Allergy/AdvReac Type Severity Reaction Status Date / Time Penicillins Allergy Unknown Increased Verified 10/23/22 14:09 heart rate Review of Systems Status of ROS: Reports: 10 or more systems reviewed and unremarkable except as noted in History and below [facility] Medical History History of esophageal dilatation ?Z98.890 - Other specified postprocedural states (ICD-10) SVT (supraventricular tachycardia) ?I47.1 - Supraventricular tachycardia (ICD-10) Sleep apnea ?G47.30 - Sleep apnea, unspecified (ICD-10) Migraine with aura ?G43.109 - Migraine with aura, not intractable, without status migrainosus (ICD-10) HTN (hypertension) ?I10 - Essential (primary) hypertension (ICD-10) Depression ?F32.A - Depression, unspecified (ICD-10) Fatigue ?R53.83 - Other fatigue (ICD-10) Adenomatous colon polyp ?D12.6 - Benign neoplasm of colon, unspecified (ICD-10) GERD (gastroesophageal reflux disease) ?K21.9 - Gastro-esophageal reflux disease without esophagitis (ICD-10) Surgical History Hx of tonsillectomy ?Z90.89 - Acquired absence of other organs (ICD-10) Hx of arthroscopy of left knee ?Z98.890 - Other specified postprocedural states (ICD-10) Hx of cystoscopy ?Z98.890 - Other specified postprocedural states (ICD-10) Hx of colonoscopy ?Z98.890 - Other specified postprocedural states (ICD-10) Social History Smoking Status: Never smoker Do you use any of these nicotine containing products: None Second hand tobacco smoke exposure: No How often do you have a drink containing alcohol: 2-3 times a week Alcohol type: hard liquor How many standard drinks containing alcohol do you have on a typical day: 1 or 2 How often do you have six or more drinks on one occasion: Never AUDIT-C Alcohol total score: 3 Non-prescribed substance use: denies use Caffeine: Yes service: No Exam Narrative: Exam Narrative: Overweight count well-developed patient in no acute distress. Alert and oriented. Answers questions appropriately. Mood and affect are appropriate. Thoughts are goal oriented and rational. No tangential or magical thinking noted. Patient speaks in full sentences without needing to catch his breath. He does look very tired. HEENT: Normocephalic atraumatic. Pupils are equally round reactive to light. Extraocular muscles are intact. Conjunctivae are moist without any icterus noted. Moist mucous membranes. Neck is soft. Cardiovascular: Heart is regular rate and rhythm S1 and S2 are present without any murmurs. Lungs: Clear to auscultation bilaterally no wheezes rhonchi or rales are appreciated. Patient takes deep breaths without any discomfort. Abdomen: Soft , protuberant and nontender nondistended with normal bowel sounds. No guarding or rebound. Difficult to assess for organomegaly given body habitus. He does have minimal tenderness at the epigastric region. Negative Davey sign. Extremities: Bilateral lower extremities are without edema. Normal DP and PT pulses. Skin: Well perfused without any obvious rashes. Const: Vital Signs, click to edit/add: Vital Signs - 24 hr 06/23/23 13:31 06/23/23 13:49 06/23/23 14:07 Temperature 96.8 F L Pulse Rate 50 L Pulse Rate [Pulse Oximeter] 56 L Respiratory Rate 18 Blood Pressure 172/100 H Blood Pressure [Le ft Upper Arm] 163/90 H Pulse Oximetry 99 99 [facility] 06/23/23 14:08 06/23/23 14:15 06/23/23 14:28 Temperature Pulse Rate 51 L 55 L Pulse Rate [Pulse Oximeter] Respiratory Rate Blood Pressure 170/86 H Blood Pressure [Le ft Upper Arm] Pulse Oximetry 98 97 Oxygen Delivery Me thod 06/23/23 14:28 06/23/23 14:33 06/23/23 14:45 Temperature Pulse Rate 64 52 L Pulse Rate [Pulse Oximeter] Respiratory Rate Blood Pressure 170/86 H Blood Pressure [Le ft Upper Arm] Pulse Oximetry 95 98 Oxygen Delivery Ia thod 06/23/23 15:00 06/23/23 15:09 Temperature Pulse Rate 58 L 59 L Pulse Rate [Pulse Oximeter] Respiratory Rate Blood Pressure 154/87 H Blood Pressure [Le ft Upper Arm] Pulse Oximetry 95 99 Oxygen Delivery Me thod Course Course ED Course: EKG, read by me, shows a left bundle-branch block with a pulse of 54. Troponin is normal at 0.00. CBC shows mild anemia with a hemoglobin of 12 and hematocrit of 36.4. Chemistries are unremarkable. Repeat EKG, read by me, is unchanged. Repeat troponin 0.01. Patient remained asymptomatic while he was here. Vital Signs Vital signs: Initial Vital Signs Temperature 96.8 F L 06/23/23 13:31 Temperature Source Temporal Artery Scan 06/23/23 13:31 Pulse Rate 56 L 06/23/23 13:31 Pulse Rhythm Regular 06/23/23 13:31 Respiratory Rate 18 06/23/23 13:31 Blood Pressure 163/90 H 06/23/23 13:31 Blood Pressure Mean 114 H 06/23/23 13:31 Blood Pressure Position Supine 06/23/23 13:31 Pulse Oximetry 99 06/23/23 13:31 Oxygen Delivery Method Room Air 06/23/23 13:31 Vital Signs Temperature 96.8 F L 06/23/23 13:31 Pulse Rate 56 L 06/23/23 13:31 Respiratory Rate 18 06/23/23 13:31 Blood Pressure 163/90 H 06/23/23 13:31 Pulse Oximetry 99 06/23/23 13:31 Oxygen Delivery Method Room Air 06/23/23 13:31 Temperature 96.8 F L 06/23/23 13:31 Pulse Rate 59 L 06/23/23 15:09 Respiratory Rate 18 06/23/23 13:31 Blood Pressure 154/87 H 06/23/23 15:09 Pulse Oximetry 99 06/23/23 15:09 Oxygen Delivery Method Room Air 06/23/23 13:31 Medications Administered Medications: Discontinued Medications Generic Name Dose Route Start Last Admin Trade Name Freq PRN Reason Stop Dose Admin Diphenhydramine HCl 25 mg 06/23/23 13:48 06/23/23 13:58 Diphenhydramine 50 Mg/Ml Inj IVP 06/23/23 13:49 25 mg ONCE ONE Administration Ketorolac Tromethamine 30 mg 06/23/23 13:48 06/23/23 13:59 Ketorolac 30 Mg/Ml Inj IVP 06/23/23 13:49 30 mg ONCE ONE Administration Medical Decision Making MDM Narrative Medical decision making narrative: 52-year-old male with an episode of epigastric discomfort. We discussed several causes for this. At this time no further management is recommended. Mild anemia: Recommend colonoscopy and follow up with primary care. Medical Records Medical records reviewed: Yes I reviewed the patient's medical records Lab Data Lab results reviewed: Yes I reviewed the patient's lab results Labs: Lab Results 06/23/23 06/23/23 06/23/23 Range/Units 13:38 13:49 15:15 WBC 7.78 (4.50-11.00) K/uL RBC 4.34 (4.30-5.90) m/uL Hgb 12.0 L (13.5-17.5) gm/dL Hct 36.4 L (37.0-53.0) % MCV 84 (80-100) fL MCH 28 (26-34) pg MCHC 33 (32-36) gm/dL RDW Coeff of Teddy 13.1 (11.5-15.5) % Plt Count 308 (140-440) K/uL Neut % (Auto) 48.6 (42.0-72.0) % Lymph % (Auto) 39.8 (20-44) % [place] % (Auto) 7.2 (0.0-11.0) % Eos % (Auto) 4.0 (0.0-7.0) % Baso % (Auto) 0.3 (0.0-3.0) % Neut # (Auto) 3.78 (1.7-7.0) K/uL Lymph # (Auto) 3.10 H (0.90-2.90) K/uL [place] # (Auto) 0.60 (0.00-0.90) K/UL Eos # (Auto) 0.31 (0.00-0.50) K/uL Baso # (Auto) 0.02 (0.00-0.30) K/uL Abs Immat Gran (auto) 0.01 (0.00-0.30) K/uL Imm/Tot Granulo (auto) 0.1 % Sodium 136 (135-149) mmol/L Potassium 4.0 (3.6-5.1) mmol/L Chloride 106 (96-114) mmol/L Carbon Dioxide 22 (20-32) mmol/L Anion Gap 8 (7-15) mEq/L BUN 12 (7-30) mg/dL Creatinine 0.7 (0.5-1.5) mg/dL Estimated Creat Clear 118.07 Estimated GFR 110 ml/min Glucose 101 (60-115) mg/dL Calcium 8.9 (8.4-10.6) mg/dL Total Bilirubin 0.2 (0.1-1.5) mg/dL Direct Bilirubin 0.1 (0.0-0.5) mg/dL AST 30 (12-35) U/L ALT 24 (4-50) U/L Alkaline Phosphatase 86 (40-150) U/L Troponin I < 0.01 L (0.01-0.04) ng/mL C-Reactive Protein 0.6 (0.5-1.0) mg/dL Total Protein 6.8 (6.0-8.3) g/dL Albumin 4.0 (3.3-5.0) g/dL Lipase 278 (23-300) U/L POC Troponin I 0.00 L 0.01 (0.01-0.04) ng/ml ECG Data Attestation: I personally reviewed and interpreted this ECG as follows: Discharge Plan Discharge Clinical Impression: Acute epigastric pain Patient Disposition: Home, Self-Care Condition: Stable Additional Instructions: I do not think that your pain was caused by a cardiovascular event today. Many things can cause pain in that location of the abdomen. One thing that was found today is that your mildly anemic: Your hemoglobin is 12. This should be 13.5 or higher. If you have not had a colonoscopy at, recommend you follow-up with your primary care provider and discuss having 1 done. Prescriptions: No Action fluticasone propionate [Allergy Relief (fluticasone)] 50 mcg/actuation spray,suspension 1 spray intranasal DAILY PRN Rx Instructions: administer into each nostril ondansetron 4 mg tablet,disintegrating 4 mg PO DAILY carvedilol 25 mg tablet 25 mg PO Q12H tizanidine 2 mg tablet Patient Comments: TAKE 1-2 TABLETS (2-4 MG) BY MOUTH AT BEDTIME. tizanidine 4 mg tablet Patient Comments: TAKE 1 TABLET BY MOUTH EVERY 8 HOURS IF NEEDED FOR MUSCLE SPASM. rizatriptan 10 mg tablet 10 mg PO sertraline 100 mg tablet 100 mg PO DAILY spironolactone 25 mg tablet 25 mg PO DAILY gabapentin 300 mg capsule Patient Comments: TAKE 1 CAPSULE (300 MG) BY MOUTH THREE TIMES A DAY. omeprazole 20 mg capsule,delayed release(DR/EC) 40 mg PO DAILY zolpidem 10 mg tablet 10 mg PO HS PRN ezetimibe-simvastatin 10-10 mg tablet 1 tab PO HS Entresto 97-103 mg tablet 1 tab PO BID Follow Up/Referrals: Jyoti Felton DO [Primary Care Provider] - Stand Alone [facility]: [facility] Info Instructions
[2023-06-23] MEDS: diphenhydrAMINE 50 MG/ML inj 25 MG IVP (13:58)
[2023-06-23 13:59] LABS: Basophils Absolute Auto 0.02 K/uL (0.00-0.30); Basophils Percent Auto 0.3 % (0.0-3.0); Eosinophils Absolute Auto 0.31 K/uL (0.00-0.50); Hematocrit 36.4 % (37.0-53.0); Immature Granulocytes Abs Auto 0.01 K/uL (0.00-0.30); Immature Granulocytes Pct Auto 0.1 %; Lymphocytes Percent Auto 39.8 % (20-44); Mean Corpuscular HGB Conc 33 gm/dL (32-36); Mean Corpuscular Hemoglobin 28 pg (26-34); Mean Corpuscular Volume 84 fL (80-100); Monocytes Percent Auto 7.2 % (0.0-11.0); Neutrophils Absolute Auto 3.78 K/uL (1.7-7.0); Neutrophils Percent Auto 48.6 % (42.0-72.0); Platelet Count* 308 K/uL (140-440); RDW Coefficient of Variation % 13.1 % (11.5-15.5); Red Blood Count 4.34 m/uL (4.30-5.90); White Blood Count* 7.78 K/uL (4.50-11.00)
[2023-06-23] MEDS: KETOROLAC 30 MG/ML inj IVP (13:59)
[2023-06-23 14:10] LABS: Chloride* 106 mmol/L (96-114); Sodium* 136 mmol/L (135-149)
[2023-06-23 14:13] LABS: Anion Gap 8 mEq/L (7-15); Aspartate Amino Transferase* 30 U/L (12-35); Bilirubin Direct* 0.1 mg/dL (0.0-0.5); Bilirubin Total* 0.2 mg/dL (0.1-1.5); Carbon Dioxide* 22 mmol/L (20-32); Creatinine* 0.7 mg/dL (0.5-1.5); Est. Creatinine Clearance* 118.07; Estimated Glomerular Filt Rate 110 ml/min; Slide Review Reflex No; Total Protein* 6.8 g/dL (6.0-8.3)
[2023-06-23 14:14] LABS: Alanine Aminotransferase* 24 U/L (4-50); Alkaline Phosphatase* 86 U/L (40-150); Blood Urea Nitrogen* 12 mg/dL (7-30); Calcium* 8.9 mg/dL (8.4-10.6); Glucose* 101 mg/dL (60-115); Lipase* 278 U/L (23-300)
[2023-06-23 14:16] LABS: C Reactive Protein* 0.6 mg/dL (0.5-1.0)
[2023-06-23 14:27] LABS: Troponin I* < 0.01 ng/mL (0.01-0.04)
[2023-06-23 15:30] LABS: Troponin, Point-of-Care* 0.01 ng/ml (0.01-0.04)
== END 2023-06-23 15:42 | disposition home or self-care (01) ==
PROVIDERS: Emergency Provider Family Medicine; PCP Family Medicine
DX: R10.13 Epigastric pain (principal)
CPT/HCPCS: 36415; 80048; 80076; 83690; 84484; 85025; 86140; 93005; 94761; 96374; 96375; 99284; J1200; J1885

== ENCOUNTER 2023-10-17 14:15 | Outpatient (RCR) | payer OTHER, SELFPAY | END 2024-01-18 10:44 | disposition home or self-care (01) | PROVIDERS: PCP Family Medicine; Visit Provider Family Medicine | DX: M54.2 Cervicalgia (principal); M79.2 Neuralgia and neuritis, unspecified; Z51.89 Encounter for other specified aftercare | CPT/HCPCS: 97012; 97110; 97140; 97162 ==

== ENCOUNTER 2024-09-23 09:30 | Outpatient (RCR) | payer OTHER, SELFPAY | END 2025-01-21 23:59 | disposition home or self-care (01) | PROVIDERS: PCP Family Medicine; Visit Provider Podiatrist | DX: M76.62 Achilles tendinitis, left leg (principal); Z51.89 Encounter for other specified aftercare | CPT/HCPCS: 97110; 97140; 97161 ==